=== PATIENT | female | born 1970 | race African-American/Black ===

== ENCOUNTER → 2018-08-09 | Outpatient (CLI) | payer OTHER ==
[~2018-08-09] MED LIST: Sodium Chloride 0.9% 15 ML NEB ONE
--- NOTE | 2018-08-10 10:15 | HP ---
HISTORY OF PRESENT ILLNESS: Socorro Up is a 48-year-old, who [facility] for evaluation of multiple ulcerations of the right and left feet. The patient has two ulcerations of the left foot and one ulceration of the right great toe. The patient resides at [facility]. She was referred to the [facility] by Dr. Tobar. The patient's medical history is significant for multiple sclerosis. She is not accompanied by any staff members today. The patient is unable to give her medical history. PAST MEDICAL HISTORY: 1. Hypertension. 2. Anemia. 3. Diabetes mellitus. 4. Multiple sclerosis. 5. Hypothyroidism. PAST SURGICAL HISTORY: PEG tube placement. MEDICATIONS: 1. Lantus. 2. Regular sliding scale insulin. 3. Clonidine. 4. Vitamin D3. 5. Fish oil. 6. Multivitamin. 7. Iron. 8. Omeprazole. 9. Levothyroxine. 10. Lisinopril. 11. Metoprolol. 12. Valacyclovir. 13. Tylenol No. 3 as needed. ALLERGIES: PENICILLIN. SOCIAL HISTORY: Social history is negative for tobacco or EtOH use. FAMILY HISTORY: Noncontributory. PHYSICAL EXAMINATION: VITAL SIGNS: Temperature 98.8, pulse 67, respirations 16, and blood pressure 122/80. Accu-Chek 124. GENERAL: A 48-year-old female lying on a stretcher in examination room, in no acute distress. HEENT: Normocephalic. NECK: No nuchal rigidity. CHEST: Clear to auscultation. CV: Regular rate and rhythm. ABDOMEN: Soft. EXTREMITIES: Two ulcerations are present over the left foot, one ulceration is present over the right great toe. No purulent drainage is associated with any of the wounds. No erythema of the skin surrounding any of the wound is present. No maceration of the skin of the periwound of any of the wounds is noted. No significant edema of the right or left lower extremities is present on exam today. ASSESSMENT AND PLAN: 1. Multiple pressure ulcerations of the right and left feet as described above. Dressing changes of Silvercel and Mepilex border will be initiated today. These dressing changes are to be performed 3 times per week after cleansing and irrigation at [facility]. No antibiotics will be prescribed today based upon the appearance of the wounds. Orders will be transmitted to [facility] for offloading boots to the right and left feet. The patient is to utilize the offloading boots at all times. 2. Diabetes mellitus. Accu-Cheks will be obtained at the time of the patient's clinic visits. The patient's Accu-Chek in clinic today is 124. 3. Multiple sclerosis. 4. Anemia. 5. Hypertension. 6. Hypothyroidism. Job ID: [id number]
== END ==
LOC: CANPRECLI → WCC 10:32
PROVIDERS: ATTEND Family Medicine
DX: L89.899 Pressure ulcer of other site, unspecified stage (principal); G35 Multiple sclerosis; E11.9 Type 2 diabetes mellitus without complications; D64.9 Anemia, unspecified; I10 Essential (primary) hypertension; E03.9 Hypothyroidism, unspecified; Z79.4 Long term (current) use of insulin; Z79.899 Other long term (current) drug therapy; Z88.0 Allergy status to penicillin
CPT/HCPCS: 36416; 97602; 99204; A4218; G0463

== ENCOUNTER 2019-02-12 14:12 | Emergency (ER) | payer OTHER ==
--- NOTE | 2019-02-12 16:53 | RAD ---
XR Abdomen 1 View/KUB History: Clogged PEG tube Comparison: None. Findings: There is contrast in what appears to be the stomach and proximal small bowel. Moderate stoo l burden. Bones are osteopenic. Impression: Contrast within the stomach and small bowel.
== END 2019-02-12 18:15 ==
LOC: ERS 14:12
DX: K94.29 Other complications of gastrostomy (principal); I10 Essential (primary) hypertension; D64.9 Anemia, unspecified; E11.9 Type 2 diabetes mellitus without complications; E03.9 Hypothyroidism, unspecified; F32.9 Major depressive disorder, single episode, unspecified; G35 Multiple sclerosis
CPT/HCPCS: 43762; 74018